=== PATIENT | female | born 1985 | race Two or more races ===

== ENCOUNTER → 2020-05-22 | Outpatient (CLI) | payer OTHER | END | disposition home or self-care (01) | LOC: OFIC 805 14:45 | PROVIDERS: ATTEND Otolaryngology Otology & Neurotology | DX: H60.8X1 Other otitis externa, right ear (principal); H61.21 Impacted cerumen, right ear ==

== ENCOUNTER → 2020-06-05 | Outpatient (CLI) | payer OTHER | END | disposition home or self-care (01) | LOC: OFIC 805 13:15 | PROVIDERS: ATTEND Otolaryngology Otology & Neurotology | DX: H60.8X1 Other otitis externa, right ear (principal); H61.21 Impacted cerumen, right ear ==

== ENCOUNTER → 2020-07-07 | Outpatient (CLI) | payer OTHER | END | disposition home or self-care (01) | LOC: OFIC 805 14:15 | PROVIDERS: ATTEND Otolaryngology Otology & Neurotology | DX: H60.8X1 Other otitis externa, right ear (principal); H61.21 Impacted cerumen, right ear; H72.01 Central perforation of tympanic membrane, right ear; H90.11 Conductive hearing loss, unilateral, right ear, with unrestricted hearing on the contralateral side ==

== ENCOUNTER 2020-07-31 10:44 | Outpatient (CLI) | payer OTHER | END 2020-07-31 15:10 | disposition home or self-care (01) | LOC: OFIC 805 10:44 | PROVIDERS: ATTEND Otolaryngology Otology & Neurotology | DX: H60.8X1 Other otitis externa, right ear (principal); H61.21 Impacted cerumen, right ear; H90.11 Conductive hearing loss, unilateral, right ear, with unrestricted hearing on the contralateral side; B37.84 Candidal otitis externa ==

== ENCOUNTER 2020-08-09 08:23 | Outpatient (CLI) | payer OTHER | END 2020-08-09 08:48 | disposition home or self-care (01) | LOC: OFIC 805 08:23 | PROVIDERS: ATTEND Otolaryngology Otology & Neurotology | DX: H90.11 Conductive hearing loss, unilateral, right ear, with unrestricted hearing on the contralateral side (principal); B37.84 Candidal otitis externa; H60.8X1 Other otitis externa, right ear ==